=== PATIENT | female | born 1990 | race Caucasian/White ===

== ENCOUNTER 2016-09-24 13:42 | Emergency (ER) | payer BC ==
[2016-09-24 14:26] LABS: HEMOGLOBIN 15.2 gm/dl (12.3-15.3); RED BLOOD COUNT 5.11 M/UL (4.00-5.10); WHITE BLOOD COUNT 9.3 K/UL (4.5-11.0)
[2016-09-24 14:41] LABS: BUN/CREATININE RATIO 22 (0-10)
== END 2016-09-24 17:30 | disposition home or self-care (01) ==
LOC: ER1 13:42
PROVIDERS: Emergency Medicine
DX: R07.89 Other chest pain (principal); R06.02 Shortness of breath; R51 Headache; I10 Essential (primary) hypertension
CPT/HCPCS: 36415; 71010; 80053; 82550; 82553; 83874; 84484; 84702; 84703; 85025; 85379; 93005; 99285